=== PATIENT | male | born 1970 | race African-American/Black ===

== ENCOUNTER 2020-11-18 15:20 | Inpatient (IN) | payer OTHER ==
[2020-11-18] MEDS ORDERED: SODIUM CHLORIDE 0.9% 1,000 ML IV STA (16:53)
--- NOTE | 2020-11-18 16:58 | ED ---
General Adult HPI - General Chief complaint: Extremity Problem,Nontraumatic Stated complaint: Leg pain Time Seen by Provider: 11/18/20 15:25 Source: patient, RN notes reviewed, old records reviewed Mode of arrival: ambulatory Limitations: no limitations - History of Present Illness Initial comments: This is a 50-year-old male who presents emergency Department complaining that his right leg is extremely weak. Patient states he cannot walk on it because it so weak. Patient states a year ago he had coded in January he had the welsh syndrome he was given IgG and his symptoms improved. Patient states in June again he had weakness bilaterally he was given IgG again and his symptoms improved. Patient states since then he'll have weakness occasionally is both legs and other occasions one leg. Patient states since then every time he gets it just goes away after some fluids and an overnight stay in the hospital. Patient is in rehab for cocaine abuse is been there for 9 days. - Related Data Home Medications Medication Instructions Recorded Confirmed Amitriptyline HCl [Elavil] 50 mg PO BID 11/18/20 11/18/20 Atorvastatin Calcium [Lipitor] 40 mg PO HS 11/18/20 11/18/20 Carvedilol [Coreg] 12.5 mg PO BID 11/18/20 11/18/20 HYDROcodone/APAP 5-325MG [[place] 1 tab PO BID PRN 11/18/20 11/18/20 5-325] Insulin Glargine [Lantus] 60 unit SQ BID 11/18/20 11/18/20 Insulin Lispro [humaLOG] See Protocol SQ ACHS 11/18/20 11/18/20 Loratadine 10 mg PO DAILY 11/18/20 11/18/20 Losartan Potassium [Cozaar] 100 mg PO DAILY 11/18/20 11/18/20 Omeprazole 20 mg PO DAILY 11/18/20 11/18/20 Pregabalin [Lyrica] 200 mg PO BID 11/18/20 11/18/20 Promethazine 6.25MG/5Ml [Phenergan 6.25 mg PO Q6H PRN 11/18/20 11/18/20 Syrup] glipiZIDE [Glucotrol] 5 mg PO AC-SUPPER 11/18/20 11/18/20 glipiZIDE [Glucotrol] 10 mg PO AC-BRKFST 11/18/20 11/18/20 Allergies Allergy/AdvReac Type Severity Reaction Status Date / Time amoxicillin Allergy Anaphylaxis Verified 11/18/20 19:07 ibuprofen [From Motrin] Allergy Anaphylaxis Verified 11/18/20 19:07 lisinopril Allergy Anaphylaxis Verified 11/18/20 19:07 tramadol Allergy Anaphylaxis Verified 11/18/20 19:07 Review of Systems ROS Statement: Those systems with pertinent positive or pertinent negative responses have been documented in the HPI. ROS Other: All systems not noted in ROS Statement are negative. Past Medical History Past Medical History: Diabetes Mellitus, Hypertension Additional Past Medical History / Comment(s): GB History of Any Multi-Drug Resistant Organisms: None Reported Past Surgical History: Tonsillectomy Past Psychological History: No Psychological Hx Reported Smoking Status: Never smoker Past Alcohol Use History: Occasional Past Drug Use History: None Reported General Exam - General Exam Comments Initial Comments: GENERAL: Patient is well-developed and well-nourished. Patient is nontoxic and well- hydrated and is in no acute distress. ENT: Neck is soft and supple. No significant lymphadenopathy is noted. Oropharynx is clear. Moist mucous membranes. Neck has full range of motion without eliciting any pain. EYES: The sclera were anicteric and conjunctiva were pink and moist. Extraocular movements were intact and pupils were equal round and reactive to light. Eyelids were unremarkable. PULMONARY: Unlabored respirations. Good breath sounds bilaterally. No audible rales rhonchi or wheezing was noted. CARDIOVASCULAR: There is a regular rate and rhythm without any murmurs gallops or rubs. ABDOMEN: Soft and nontender with normal bowel sounds. No palpable organomegaly was noted. There is no palpable pulsatile mass. SKIN: Skin is clear with no lesions or rashes and otherwise unremarkable. NEUROLOGIC: Patient is alert and oriented x3. Cranial nerves II through XII are grossly intact. Patient should strength at the knee and ankle are 1 out of 5. MUSCULOSKELETAL: Normal extremities with adequate strength and full range of motion. 1+ edema bilaterally LYMPHATICS: No significant lymphadenopathy is noted PSYCHIATRIC: Normal psychiatric evaluation. Limitations: no limitations Course Vital Signs 11/18/20 15:21 Temperature 99 F Pulse Rate 88 Respiratory 20 Rate Blood Pressure 134/85 O2 Sat by Pulse 99 Oximetry Medical Decision Making - Medical Decision Making EKG shows normal sinus rhythm 80 bpm ME interval is 134 QRS is 90 QT interval 362 QTC is 4:30. Patient's EKG shows no ST segment elevation or depression. I will back to reevaluate the patient he was starting to get some movement in the right leg and he states this is what happens multiple times in the past when his leg doesn't move it up slowly comes back and then he is fine. CT of the brain shows no acute abnormality. I spoke with Dr. hunter he wanted the patient admitted he wanted neurology to evaluate the patient. - Lab Data Result diagrams: 11/18/20 17:14 11/18/20 17:14 Lab Results 11/18/20 11/18/20 11/18/20 Range/Units 17:14 17:14 17:14 WBC 6.1 (3.8-10.6) k/uL RBC 3.77 L (4.30-5.90) m/uL Hgb 11.6 L (13.0-17.5) gm/dL Hct 34.3 L (39.0-53.0) % MCV 91.1 (80.0-100.0) fL MCH 30.9 (25.0-35.0) pg MCHC 33.9 (31.0-37.0) g/dL RDW 13.4 (11.5-15.5) % Plt Count 344 (150-450) k/uL MPV 6.8 Neutrophils % 50 % Lymphocytes % 37 % Monocytes % 8 % Eosinophils % 3 % Basophils % 1 % Neutrophils # 3.1 (1.3-7.7) k/uL Lymphocytes # 2.3 (1.0-4.8) k/uL Monocytes # 0.5 (0-1.0) k/uL Eosinophils # 0.2 (0-0.7) k/uL Basophils # 0.0 (0-0.2) k/uL PT 9.7 (9.0-12.0) sec INR 0.9 (<1.2) Sodium 138 (137-145) mmol/L Potassium 4.0 (3.5-5.1) mmol/L Chloride 103 (98-107) mmol/L Carbon Dioxide 29 (22-30) mmol/L Anion Gap 6 mmol/L BUN 9 (9-20) mg/dL Creatinine 0.62 L (0.66-1.25) mg/dL Est GFR (CKD-EPI)AfAm >90 (>60 ml/min/1.73 sqM) Est GFR (CKD-EPI)NonAf >90 (>60 ml/min/1.73 sqM) Glucose 187 H (74-99) mg/dL Calcium 9.2 (8.4-10.2) mg/dL Magnesium 1.7 (1.6-2.3) mg/dL Total Bilirubin 0.2 (0.2-1.3) mg/dL AST 26 (17-59) U/L ALT 24 (4-49) U/L Alkaline Phosphatase 80 (38-126) U/L Troponin I (0.000-0.034) ng/mL Total Protein 6.8 (6.3-8.2) g/dL Albumin 3.9 (3.5-5.0) g/dL 11/18/20 Range/Units 17:14 WBC (3.8-10.6) k/uL RBC (4.30-5.90) m/uL Hgb (13.0-17.5) gm/dL Hct (39.0-53.0) % MCV (80.0-100.0) fL MCH (25.0-35.0) pg MCHC (31.0-37.0) g/dL RDW (11.5-15.5) % Plt Count (150-450) k/uL MPV Neutrophils % % Lymphocytes % % Monocytes % % Eosinophils % % Basophils % % Neutrophils # (1.3-7.7) k/uL Lymphocytes # (1.0-4.8) k/uL Monocytes # (0-1.0) k/uL Eosinophils # (0-0.7) k/uL Basophils # (0-0.2) k/uL PT (9.0-12.0) sec INR (<1.2) Sodium (137-145) mmol/L Potassium (3.5-5.1) mmol/L Chloride (98-107) mmol/L Carbon Dioxide (22-30) mmol/L Anion Gap mmol/L BUN (9-20) mg/dL Creatinine (0.66-1.25) mg/dL Est GFR (CKD-EPI)AfAm (>60 ml/min/1.73 sqM) Est GFR (CKD-EPI)NonAf (>60 ml/min/1.73 sqM) Glucose (74-99) mg/dL Calcium (8.4-10.2) mg/dL Magnesium (1.6-2.3) mg/dL Total Bilirubin (0.2-1.3) mg/dL AST (17-59) U/L ALT (4-49) U/L Alkaline Phosphatase (38-126) U/L Troponin I <0.012 (0.000-0.034) ng/mL Total Protein (6.3-8.2) g/dL Albumin (3.5-5.0) g/dL Disposition Clinical Impression: Weakness of right leg Disposition: ADMITTED IP TO THIS HOSP Referrals: Nonstaff,Physician [Primary Care Provider] - 1-2 days Time of Disposition: 20:51
[2020-11-18 17:29] LABS: Basophils % (A) 1 %; Eosinophils # (A) 0.2 k/uL (0-0.7); Eosinophils % (A) 3 %; HCT 34.3 % (39.0-53.0); HGB 11.6 gm/dL (13.0-17.5); Lymphocytes # (A) 2.3 k/uL (1.0-4.8); Lymphocytes % (A) 37 %; MCH 30.9 pg (25.0-35.0); MCHC 33.9 g/dL (31.0-37.0); MCV 91.1 fL (80.0-100.0); Mean Platelet Volume 6.8; Monocytes # (A) 0.5 k/uL (0-1.0); Monocytes % (A) 8 %; Neutrophils # (A) 3.1 k/uL (1.3-7.7); Neutrophils % (A) 50 %; Platelet Count 344 k/uL (150-450); RBC 3.77 m/uL (4.30-5.90); RDW 13.4 % (11.5-15.5); WBC 6.1 k/uL (3.8-10.6)
--- NOTE | 2020-11-18 17:30 | XR ---
EXAMINATION TYPE: XR chest 2V DATE OF EXAM: 11/18/2020 COMPARISON: NONE HISTORY: Leg pain TECHNIQUE: 2 views FINDINGS: Heart and mediastinum are normal. Lungs are clear of infiltrate. There are no hilar masses. Bony thorax is intact. Pulmonary vascularity is normal. This possible 1 cm nodule in the left midlun g field. IMPRESSION: Normal heart. Possible left side pulmonary nodule.
[2020-11-18 17:37] LABS: INR 0.9 (<1.2); Prothrombin Time 9.7 sec (9.0-12.0)
[2020-11-18 17:38] LABS: ALT 24 U/L (4-49); AST 26 U/L (17-59); African American GFR (CKD) >90 (>60 ml/min/1.73 sqM); Albumin 3.9 g/dL (3.5-5.0); Alkaline Phosphatase 80 U/L (38-126); Anion Gap 6 mmol/L; Blood Urea Nitrogen 9 mg/dL (9-20); Calcium 9.2 mg/dL (8.4-10.2); Carbon Dioxide 29 mmol/L (22-30); Chloride 103 mmol/L (98-107); Glucose 187 mg/dL (74-99); Magnesium 1.7 mg/dL (1.6-2.3); Non-African American GFR(CKD) >90 (>60 ml/min/1.73 sqM); Sodium 138 mmol/L (137-145); Total Bilirubin 0.2 mg/dL (0.2-1.3); Total Protein 6.8 g/dL (6.3-8.2)
[2020-11-18] MEDS ORDERED: SODIUM CHLORIDE 0.9% 1,000 ML IV ONE (20:51)
--- NOTE | 2020-11-18 21:02 | CT ---
EXAMINATION TYPE: CT brain wo con DATE OF EXAM: 11/18/2020 COMPARISON: None HISTORY: Right leg pain and weakness. CT DLP: 1114.4 mGycm Automated exposure control for dose reduction was used. Images were obtained of the brain without contrast. Ventricles and sulci appear normal. There is no mass effect nor midline shift. There is no sign of in tracranial hemorrhage. The calvarium is intact. IMPRESSION: Negative unenhanced head CT scan.
[2020-11-18 21:08] LABS: Amphetamine Screen,Urine Not Detected (NotDetected); Barbiturate Screen,Urine Not Detected (NotDetected); Benzodiazepines Screen,Urine Not Detected (NotDetected); Cocaine Screen,Urine Not Detected (NotDetected); Methadone Screen, Urine Not Detected (NotDetected); Opiate Screen,Urine Not Detected (NotDetected); Oxycodone Screen, Urine Not Detected (NotDetected); Phencyclidine Screen,Urine Not Detected (NotDetected); Tricyclic Antidepressant,Urine Detected (NotDetected); Urn Cannabinoid Scrn Not Detected (NotDetected)
[2020-11-18] MEDS ORDERED: ASPIRIN 325 MG TAB PO STA (21:08)
[2020-11-18 22:49] LABS: Glucose,Whole Blood 166 mg/dL (75-99)
[2020-11-19 07:09] LABS: Glucose,Whole Blood 87 mg/dL (75-99)
[2020-11-19] MEDS: INSULIN ASPART (NovoLOG) 100 UNIT/ML VIAL SQ SCH ×4 (08:09→20:39)
[2020-11-19] MEDS: carvediloL 12.5 MG TAB PO SCH ×2 (08:55→20:35)
[2020-11-19] MEDS: glipiZIDE 10 MG TAB PO SCH (08:55)
[2020-11-19] MEDS: AMITRIPTYLINE HCL 50 MG TAB PO SCH ×2 (08:55→20:35)
[2020-11-19] MEDS: INSULIN DETEMIR (LEVEMIR) 100 UNIT/ML SYR SQ SCH ×2 (08:55→21:46)
[2020-11-19] MEDS ORDERED: FAMOTIDINE 20 MG/2 ML VIAL IV SCH (09:00)
[2020-11-19] MEDS ORDERED: ASPIRIN 325 MG TAB PO SCH (09:00)
[2020-11-19] MEDS: LOSARTAN 50 MG TAB PO SCH (09:01)
[2020-11-19] MEDS: HEPARIN SODIUM,PORCINE/PF 5,000 UNIT/0.5 ML SYRINGE SQ SCH ×2 (09:01→20:34)
--- NOTE | 2020-11-19 09:44 | P.CNNES ---
History of Present Illness Consult date: 11/19/20 Requesting physician: John Major Reason for Consult: right leg weakness with history of GBS History of Present Illness: This is a 50-year-old gentleman with medical history of diabetes mellitus (for past 37 years), hypertension (for past 10-15 years), Mfrcdljfi-Uazqg-fpcviqje (GBS), peripheral neuropathy, cocaine use who presented emergency department on 11/18/2020 for right leg weakness. Patient stated that yesterday around 2 PM while in rehab for cocaine use he was sitting down in which she said that for an hour and then the upon trying to get up he noticed that his entire right leg was weak. He denies any new numbness, and denies any visual disturbance, any difficulty getting his words out swallowing, he denies any upper extremity weakness. He denies of any neck pain or lower back pain. He denies any trauma to the neck lower back or lower extremity. He denies any bladder or bowel incontinence. He stated that he uses cocaine and the last time he used it was the and the mid of October 2020. He is currently in rehab therapy for 9 days as stated above. He states that that he snorts and the smokes cocaine. He denies any alcohol use. He stated that he had similar episodes in the past of lower c hemistry weakness either he had right lower extremity weakness or bilateral lower extremity weakness initially started in January 2020 and he had lower bilateral lower extremity weakness and he was a notified he had GBS and was started on IVIG. Then he had another episode of right leg weakness then eventually involving both legs and that was engendered 2020 and then in July 2020 he had bilateral lower extremity weakness and he had extensive testing in which she had MRI of the brain and imaging of his spine and he had a lumbar puncture was told he has GBS then was given IVIG then his strength improved. He had a recurrent episode in October and we had some weakness lower extremity. He had the most of the workup at [facility]. He did follow up with a neurologist and not as an outpatient and he said he was prescribed Elavil to help with her neuropathy but his GBS was not addressed. As well as at [facility] (over at [place]) one of the neurologist notified him that he needs a sleep study since the was felt possibly he had a sleep disorder as a cause of his weakness and needed to follow-up with [facility] but he has not followed up at [facility]. Patient has been using a cane for at least 10 years because of his peripheral neuropathy. Patient denies any alcohol use or any tobacco use. Of note patient stated that he possibly had a stroke about the 10 years ago but does not recall the symptoms or location of the stroke he had it and he said that that his symptoms resolved. Patient stated that he is on aspirin 81 mg daily. Patient other home medication is Elavil 50 mg 1 tablet twice a day, Lyrica 20 mg tablet twice a day, losartan, insulin, [place] 1 tablet twice a day when necessary, glipizide, Coreg, Lipitor 40 mg daily at bedtime. Some other workup in the hospital consisted of: Initial vital signs: Blood pressure of 134/85, heart rate of 88, respiratory of 20, temperature of 99 Fahrenheit oral, respiratory rate of 20, pulse ox of 99% room air. CT of the head is reported as negative unenhanced head CT scan. EKG is reported as normal sinus rhythm. Left axis deviation. Abnormal EKG. Initial white blood cells 6.1, platelet is 3 44,000 which is normal. Initial hemoglobin is 11.6 with a slightly low. Chemistry panel is unremarkable. The glucose is slightly elevated to 187 the otherwise unremarkable. Toxicology screen is positive for tricyclic antidepressant. Review of Systems Review of system: The 12 point system was reviewed and apparent positive and negative per HPI. Past Medical History Past Medical History: Diabetes Mellitus, Hypertension Additional Past Medical History / Comment(s): GB History of Any Multi-Drug Resistant Organisms: None Reported Past Surgical History: Tonsillectomy Past Psychological History: No Psychological Hx Reported Smoking Status: Never smoker Past Alcohol Use History: Occasional Past Drug Use History: None Reported Medications and Allergies Home Medications Medication Instructions Recorded Confirmed Type Amitriptyline HCl [Elavil] 50 mg PO BID 11/18/20 11/18/20 History Atorvastatin Calcium [Lipitor] 40 mg PO HS 11/18/20 11/18/20 History Carvedilol [Coreg] 12.5 mg PO BID 11/18/20 11/18/20 History HYDROcodone/APAP 5-325MG [[place] 1 tab PO BID PRN 11/18/20 11/18/20 History 5-325] Insulin Glargine [Lantus] 60 unit SQ BID 11/18/20 11/18/20 History Insulin Lispro [humaLOG] See Protocol SQ ACHS 11/18/20 11/18/20 History Loratadine 10 mg PO DAILY 11/18/20 11/18/20 History Losartan Potassium [Cozaar] 100 mg PO DAILY 11/18/20 11/18/20 History Omeprazole 20 mg PO DAILY 11/18/20 11/18/20 History Pregabalin [Lyrica] 200 mg PO BID 11/18/20 11/18/20 History Promethazine 6.25MG/5Ml [Phenergan 6.25 mg PO Q6H PRN 11/18/20 11/18/20 History Syrup] glipiZIDE [Glucotrol] 5 mg PO AC-SUPPER 11/18/20 11/18/20 History glipiZIDE [Glucotrol] 10 mg PO AC-BRKFST 11/18/20 11/18/20 History Allergies Allergy/AdvReac Type Severity Reaction Status Date / Time amoxicillin Allergy Anaphylaxis Verified 11/18/20 19:07 ibuprofen [From Motrin] Allergy Anaphylaxis Verified 11/18/20 19:07 lisinopril Allergy Anaphylaxis Verified 11/18/20 19:07 tramadol Allergy Anaphylaxis Verified 11/18/20 19:07 Physical Examination - Vital Signs Vital Signs: Vital Signs Temp Pulse Resp BP Pulse Ox 11/19/20 04:54 98.3 F 86 18 145/89 99 11/18/20 22:50 88 20 136/88 98 11/18/20 21:00 90 20 128/81 99 11/18/20 20:30 98.8 F 86 20 133/85 99 11/18/20 15:21 99 F 88 20 134/85 99 Intake and Output 11/18/20 11/19/20 11/19/20 22:59 06:59 14:59 Other: Weight 124.738 kg GENERAL: The patient is lying in bed and is not in acute distress. CHEST: The heart rate is regular rate rhythm. No murmurs to auscultation. No carotid bruit bilaterally. LUNG: Clear to auscultation bilaterally no wheezing noted throughout. Not labored breathing. ABDOMEN/GI: Bowel sounds present in all 4 quadrants. No tenderness to palpation throughout. NEUROLOGICAL: Higher mental function: The patient is awake, alert, oriented to self, place and time. Patient is following commands. No aphasia and no neglect. Cranial nerves: The pupils are round, equal and reactive to light and accommodation. Visual pearce are full to confrontation throughout. Extraocular movement is intact no nystagmus is noted. Facial sensation is normal to touch throughout. The facial strength is normal throughout. Hearing is normal bilaterally to hand rub. Tongue is midline and moved [id number] without any difficulty. No dysarthria is noted. Shoulder shrug is normal bilaterally. Motor: Gait is deferred. The strength is right lower extremity is 1-2/5. Otherwise 5 over 5 throughout. Normal tone and bulk. Cerebellum: Normal finger to nose bilaterally. Sensation: Sensation is decreased to touch from knees bilaterally (old). Otherwise normal to touch throughout. Reflexes (right/left): 0 throughout bilaterally. Left biceps is 1+, otherwise 2+ throughout upper. Plantars are downgoing bilaterally. Results Coagulation study: PT of 9.7 and INR 0.9. Pérez virus PCR was not detected. - Laboratory Findings CBC and BMP: 11/18/20 17:14 11/18/20 17:14 Abnormal Lab Findings: Abnormal Labs 11/18/20 11/18/20 11/18/20 17:14 17:14 20:33 RBC 3.77 L Hgb 11.6 L Hct 34.3 L Creatinine 0.62 L Glucose 187 H POC Glucose (mg/dL) U Tricyclic Antidepress Detected H 11/18/20 22:45 RBC Hgb Hct Creatinine Glucose POC Glucose (mg/dL) 166 H U Tricyclic Antidepress Assessment and Plan Assessment: Acute right leg weakness. One of the possibility is rule out stroke (especially with multiple risk factors) vs GBS (especially with similar presentation in the past and was notified he had GBS as cause at outside facility). History of Ydroshboy-Bnosk-tquxgtea (GBS) with leg weakness History of stroke about 10 years ago (but does not recall details and without residual weakness) Diabetes mellitus Peripheral neuropathy Hypertension Cocaine use Plan: * CT of the head is reported as negative unenhanced head CT scan. * In the ED the patient was given aspirin 325 once then was started on aspirin 325 daily. I will decrease ASA 81mg daily (home dose). Primary team's placed patient on 40 mg of Lipitor daily at bedtime daily. * I ordered MRI of the brain to rule out any underlying stroke. I also ordered MRI Lumbar spine w/ and w/o. If patient does have stroke seen on MRI then will get rest of stroke work-up. * If MRI Is negative for stroke he does not want to pursue with lumbar puncture but will start him on IVIG 2g/kg over 3-5 days. * Consulted physical therapy and occupation therapy. * Ordered every 4 hours neuro checks and continuous cardiac monitoring. * Primary team ordered vitamin B12, TSH, folate, hemoglobin A1c and are pending. * We'll defer the rest of the medical management to primary team. * Patient was notified to follow-up with a neurologist as outpatient within 1-2 weeks upon discharge. He was notified to pursue with sleep study as notified in the past at [facility]. * The patient was counseled on cocaine use. Thank you for the consultation. Elbert Calloway MD Neuro-Hospitalist Time with Patient: Greater than 30
--- NOTE | 2020-11-19 11:27 | US ---
EXAMINATION TYPE: US carotid duplex BILAT DATE OF EXAM: 11/19/2020 COMPARISON: NONE CLINICAL HISTORY: stroke. right leg gives out, no h/o stroke EXAM MEASUREMENTS: RIGHT: Peak Systolic Velocity (PSV) cm/sec ----- Right CCA: 69.3 ----- Right ICA: 82.3 ----- Right ECA: 86.0 ICA/CCA ratio: 1.2 RIGHT: End Diastole cm/sec ----- Right CCA: 15.9 ----- Right ICA: 24.7 ----- Right ECA: 11.9 LEFT: Peak Systolic Velocity (PSV) cm/sec ----- Left CCA: 96.0 ----- Left ICA: 82.6 ----- Left ECA: 70.9 ICA/CCA ratio: 0.9 LEFT: End Diastole cm/sec ----- Left CCA: 25.6 ----- Left ICA: 37.2 ----- Left ECA: 20.3 VERTEBRALS (direction of flow): Right Vertebral: Antegrade Left Vertebral: Antegrade Rhythm: Normal Soft plaque noted at mid/dist left CCA, no significant stenosis seen Grayscale images show no significant focal plaque at carotid bulb level bilaterally. IMPRESSION: No hemodynamically significant stenosis seen in either internal carotid artery. Criteria for Assigning % of Stenosis / Diameter reduction (Estimation based on the indirect measurements of the internal carotid artery velocities (ICA PSV). 1. Normal (no stenosis)=ICA PSV < 125 cm/s: ratio < 2.0: ICA EDV<40 cm/s. 2. Less than 50% stenosis=ICA PSV < 125 cm/s: ratio < 2.0: ICA EDV<40 cm/s. 3. 50 to 69% stenosis=ICA PSV of 125 to 230 cm/s: ration 2.0 ? 4.0: ICA EDV 40-100 cm/s. 4. Greater than 70% stenosis to near occlusion= ICA PSV > 230 cm/s: ratio > 4.0: ICA EDV > 100 cm/s. 5. Near occlusion= ICA PSV velocities may be low or undetectable: variable ratio and ICA EDV. 6. Total occlusion=unable to detect flow.
[2020-11-19 12:21] LABS: Glucose,Whole Blood 112 mg/dL (75-99)
[2020-11-19] MEDS: PREGABALIN 100 MG CAP PO SCH ×2 (13:59→20:38)
[2020-11-19] MEDS ORDERED: TEMAZEPAM 15 MG CAP PO PRN (14:21)
[2020-11-19] MEDS ORDERED: LORazepam 0.5 MG TAB PO PRN (14:21)
--- NOTE | 2020-11-19 14:38 | MR ---
EXAMINATION TYPE: MR brain wo/w con DATE OF EXAM: 11/19/2020 COMPARISON: CT brain from yesterday. HISTORY: Right leg weakness; , suspected stroke on admission one day earlier. TECHNIQUE: Multiplanar, multisequence images of the brain and brainstem is performed without and with IV contras t, utilizing 13 mL intravenous Gadavist . FINDINGS: Diffusion weighted images demonstrate no evidence of a recent infarct or other diffusion ab normality. The ventricular system and cisternal spaces are normal in size and appearance. The brain volume is age appropriate. There is occasional focus of T2 hyperintensity scattered throughout the wh ite matter bilaterally. Less than 6 scattered lesions are present. Midline structures demonstrate normal morphology. The craniocervical junction appears within normal limits. Post contrast images demonstrate no abnormal enhancement. The dural venous sinuses appear pa tent. The visualized sinuses are clear and the globes are intact. Increased fluid signal bilateral ma stoid air cells extending towards petrous apex is present. IMPRESSION: No MRI evidence for a recent infarct. Possible bilateral mastoiditis, correlate clinicall y.
--- NOTE | 2020-11-19 15:00 | CT ---
EXAMINATION TYPE: CT lumbar spine wo con DATE OF EXAM: 11/19/2020 2:43 PM COMPARISON: None. HISTORY: Right leg weakness. CT DLP: 2213.3 mGycm Automated exposure control for dose reduction was used. Unenhanced CT of the lumbar spine was performed. Bone and soft tissue window settings are submitted as well as coronal and sagittal reconstructions. There are 5 lumbar-type vertebra. Lumbar spine shows satisfactory alignment without evidence of acute fracture or dislocation. Vertebral body heights and disc space heights are maintained. Spinal canal grossly preserved. Review of axial images shows T12-L1, L1-L2, and L2-L3 levels all appear within normal limits. Axial images at L3-L4 level shows mild facet degenerative changes bilaterally. Axial images at L4-L5 level show moderate to severe facet degenerative changes bilaterally. There is central disc protrusion mildly effacing the anterior thecal sac on axial image 65. Patent bilateral n eural foramina. Axial images at L5-S1 level show mild facet degenerative changes bilaterally. Spinal canal is preserv ed. Patent bilateral neural foramina. Paraspinal muscle bulk is maintained. Some contrast excretion from recent MRI brain study noted in th e ureters and collecting systems. IMPRESSION: Degenerative changes greatest L4-L5 level as detailed above
--- NOTE | 2020-11-19 15:08 | HP ---
HISTORY AND PHYSICAL CHIEF COMPLAINTS: Some pain and weakness of the right leg. HISTORY OF PRESENT ILLNESS: This 50-year-old gentleman with a past medical history of multiple medical problems including CVA, TIA, history of diabetes, history of GERD, hypertension, history of , Guillain Lowell syndrome, history of CVA about 15 years ago, being followed by primary physician in [facility]. Is at rehab in [facility]. The patient apparently had a COVID-19 and was admitted and subsequently patient had a Guillain Lowell IgG treatments in 2019, about twice with success. The patient also complains of neuropathy also. Currently the patient is complaining of some pain and weakness of the right leg. Patient is unable to move the right leg. The patient is in [facility] for cocaine addiction. The patient admitted for further evaluation and treatment. There is no history of fever, rigors, chills. No headache, loss of consciousness, seizures at this time. PAST MEDICAL HISTORY: History of CVA, TIA, diabetes, GERD, hyperlipidemia hypertension, history of DJD, history of renal disease, history of Guillain Lowell syndrome. MEDICATIONS: Home medications prior to admission include Elavil, promethazine, Lyrica, omeprazole, Cozaar, loratadine, Lantus, Humalog, [place], Glucotrol, Coreg, Lipitor. ALLERGIES: AMOXICILLIN, MOTRIN, LISINOPRIL, ULTRAM. FAMILY HISTORY: History of asbestosis, lung cancer in the father. SOCIAL HISTORY: History of occasional alcohol. History of cocaine. REVIEW OF SYSTEMS: ENT: No diminished vision or hearing. CARDIOVASCULAR: No angina or palpitations. RESPIRATORY: No cough. GI: As mentioned earlier. : No dysuria. NERVOUS SYSTEM: As mentioned earlier. ALLERGY/IMMUNOLOGY: No asthma or hayfever. MUSCULOSKELETAL: As mentioned earlier. HEMATOLOGY: No history of anemia. ENDOCRINE: As mentioned earlier. CONSTITUTIONAL: As mentioned earlier. DERMATOLOGY: Negative. RHEUMATOLOGY: Negative. PSYCHIATRY: As mentioned earlier. PHYSICAL EXAM: GENERAL: Patient is alert, oriented x3. VITAL SIGNS: Pulse 86, blood pressure 145/80, respiration 18, temperature 98.2, pulse ox 99% on room air. HEENT: Conjunctivae normal. Oral mucosa moist. NECK: No jugular venous distention. No carotid bruits. No lymph node enlargement. RESPIRATORY: Breath sounds diminished at the bases. No rhonchi, no crackles. HEART: S1 and S2, muffled. ABDOMEN: Soft, no tenderness. No masses palpable. EXTREMITIES: Right leg with some pain and swelling, as well as significant weakness and some sensory abnormalities also noted. LABS: COVID-19 is negative. Glucose 166 and 112. WBC 6.2, hemoglobin 11.6, and the LFTs are normal. Drug screen is positive only for tricyclic antidepressants. ASSESSMENT: 1. Acute weakness of the right lower leg and gait dysfunction, possible acute stroke. 2. Rule out radiculopathy. 3. Right leg pain, rule out DVT. 4. History of Guillain Lowell syndrome. 5. Previous history of COVID-19. 6. History of stroke on the right side. 7. History of cerebrovascular accident, transient ischemic attack. 8. Diabetes mellitus type 2. 9. History of GERD. 10.Hypertension. 11.Hyperlipidemia. 12.History of degenerative joint disease. 13.History of peripheral neuropathy secondary to diabetes mellitus type 2. 14.History of cocaine. 15.Obesity with body mass of 31.8. RECOMMENDATION AND DISCUSSION: In this 50-year-old gentleman who presented with multiple complex medical issues, we will monitor the patient closely. Continue the current management and continue symptomatic treatment. Resume the home medications. I will follow the patient closely with Neurology and an MRI of the brain and CT of the lumbar spine. Ultrasound was ordered and ultrasound venous Doppler also will be ordered and will be done. Also recommend a 2D echo and carotid Doppler to complete the workup as well. Otherwise, closely monitor. See orders for details. Prognosis guarded because of multiple complex medical issues. Discussed with the patient who understands. Further recommendations to follow. MMODL / IJN: [id number] / MTDD
[2020-11-19] MEDS ORDERED: IMMUNE GLOBULIN (GAMMAGARD) 20 GM in EMPTY BAG 1 BAG IV ONE (16:00)
[2020-11-19] MEDS ORDERED: IMMUNE GLOBULIN (GAMMAGARD) 20 GM in EMPTY BAG 1 BAG IV NR (16:00)
--- NOTE | 2020-11-19 16:02 | US ---
EXAMINATION TYPE: US venous doppler duplex LE BI DATE OF EXAM: 11/19/2020 3:42 PM COMPARISON: NONE CLINICAL HISTORY: rule out DVT. right leg numbness, ankle swelling, no h/o dvt SIDE PERFORMED: Bilateral TECHNIQUE: The lower extremity deep venous system is examined utilizing real time linear array sonog mickey with graded compression, doppler sonography and color-flow sonography. VESSELS IMAGED: Common Femoral Vein Deep Femoral Vein Greater Saphenous Vein * Femoral Vein Popliteal Vein Small Saphenous Vein * Proximal Calf Veins (* superficial vessels) Patient too tall or bed and had to bend knees upright and couldn't stop shaking Right Leg: Negative for DVT Left Leg: Negative for DVT Grayscale, color doppler, spectral doppler imaging performed of the deep veins of the bilateral lower extremities. There is normal flow, compressibility, vascular waveforms. IMPRESSION: Suboptimal study without acute DVT identified in either lower extremity.
[2020-11-19 17:17] LABS: Appearance,Urine Clear (Clear); Bilirubin,Urine Negative (Negative); Blood,Urine Negative (Negative); Color,Urine Light Yellow; Glucose,Urine (UA) Negative (Negative); Ketones,Urine Negative (Negative); Leukocyte Esterase,Urine Negative (Negative); Nitrite,Urine Negative (Negative); PH, Urine 7.5 (5.0-8.0); Protein,Urine Negative (Negative); Specific Gravity,Urine 1.011 (1.001-1.035); Urobilinogen,Urine <2.0 mg/dL (<2.0)
[2020-11-19 17:27] LABS: C Reactive Protein 1.9 mg/dL (<1.0)
[2020-11-19] MEDS: glipiZIDE 5 MG TAB PO SCH (17:42)
[2020-11-19 18:02] LABS: Glucose,Whole Blood 242 mg/dL (75-99)
[2020-11-19 18:50] LABS: Folate, Serum 8.6 ng/mL
[2020-11-19 18:54] LABS: Hemoglobin A1C 7.4 % (4.0-6.0)
[2020-11-19] MEDS: ATORVASTATIN 40 MG TAB PO SCH (20:35)
[2020-11-19] MEDS: FAMOTIDINE 20 MG TAB PO SCH (20:35)
[2020-11-19 20:37] LABS: Glucose,Whole Blood 157 mg/dL (75-99)
[2020-11-19] MEDS: GABAPENTIN 400 MG CAP PO SCH (21:45)
[2020-11-20 08:13] LABS: Glucose,Whole Blood 141 mg/dL (75-99)
[2020-11-20] MEDS: ASPIRIN 81 MG PO SCH (08:43)
[2020-11-20] MEDS: PREGABALIN 100 MG CAP PO SCH ×2 (08:43→21:37)
[2020-11-20] MEDS: carvediloL 12.5 MG TAB PO SCH ×2 (08:43→21:37)
[2020-11-20] MEDS: PANTOPRAZOLE 40 MG TABLET PO SCH (08:43)
[2020-11-20] MEDS: GABAPENTIN 400 MG CAP PO SCH ×3 (08:43→21:37)
[2020-11-20] MEDS: INSULIN DETEMIR (LEVEMIR) 100 UNIT/ML SYR SQ SCH ×2 (08:44→21:39)
[2020-11-20] MEDS: FAMOTIDINE 20 MG TAB PO SCH (08:44)
[2020-11-20] MEDS: INSULIN ASPART (NovoLOG) 100 UNIT/ML VIAL SQ SCH ×4 (08:44→21:39)
[2020-11-20] MEDS: LOSARTAN 50 MG TAB PO SCH (08:44)
[2020-11-20] MEDS: AMITRIPTYLINE HCL 50 MG TAB PO SCH ×2 (08:45→21:37)
[2020-11-20] MEDS: glipiZIDE 10 MG TAB PO SCH (08:45)
[2020-11-20] MEDS: HEPARIN SODIUM,PORCINE/PF 5,000 UNIT/0.5 ML SYRINGE SQ SCH ×2 (08:45→21:38)
[2020-11-20 10:52] LABS: Glucose,Whole Blood 307 mg/dL (75-99)
[2020-11-20] MEDS ORDERED: CYANOCOBALAMIN 1,000 MCG/ML 1 ML VIAL IM ONE (13:15)
--- NOTE | 2020-11-20 13:51 | P.PN ---
Subjective Progress Note Date: 11/20/20 The patient was seen at bedside and he feels his right leg is better today compared to yesterday but not back to baseline. He received his first IVIG yesterday and pending to receive his second dose today. Objective - Vital Signs Vital signs: Vital Signs Temp 98.3 F 11/20/20 11:01 Pulse 87 11/20/20 11:01 Resp 20 11/20/20 11:01 BP 120/74 11/20/20 11:01 Pulse Ox 96 11/20/20 11:01 Intake & Output 11/19/20 11/20/20 11/20/20 18:59 06:59 18:59 Intake Total 86.625 720 Output Total 2600 400 Balance -2513.375 320 Weight 124.738 kg Intake: Intake, IV Titration 86.625 Amount Immune Globulin ( 86.625 Gammagard) 20 gm In Empty Bag 1 bag @ Titrate IV . Q0M ONE Rx#:[id number] Oral 720 Output: Urine 2600 400 Other: Voiding Method Urinal Urinal Urinal - Exam GENERAL: The patient is lying in bed and is not in acute distress. NEUROLOGICAL: Higher mental function: The patient is awake, alert, oriented to self, place and time. Patient is following commands. No aphasia and no neglect. Cranial nerves: The pupils are round, equal and reactive to light and accommodation. Visual pearce are full to confrontation throughout. Extraocular movement is intact no nystagmus is noted. Facial sensation is normal to touch throughout. The facial strength is normal throughout. Hearing is normal bilaterally to hand rub. Tongue is midline and moved [id number] without any difficulty. No dysarthria is noted. Shoulder shrug is normal bilaterally. Motor: Gait is deferred. The strength is right lower extremity is 3/5 able to lift above gravity (somewhat better today compared to yesterday). Otherwise 5 over 5 throughout. Normal tone and bulk. Cerebellum: Normal finger to nose bilaterally. Sensation: Sensation is decreased to touch from knees bilaterally (old). Otherwise normal to touch throughout. Reflexes (right/left): 0 throughout bilaterally. Left biceps is 1+, otherwise 2+ throughout upper. Plantars are downgoing bilaterally. - Labs CBC & Chem 7: 11/18/20 17:14 11/18/20 17:14 Labs: Abnormal Lab Results - Last 24 Hours (Table) 11/19/20 11/19/20 11/19/20 Range/Units 08:30 16:34 16:34 ESR 18 H (0-15) mm/hr POC Glucose (mg/dL) (75-99) mg/dL Hemoglobin A1c 7.4 H (4.0-6.0) % Lactate Dehydrogenase 619 H (313-618) U/L C-Reactive Protein 1.9 H (<1.0) mg/dL 11/19/20 11/19/20 11/20/20 Range/Units 17:55 20:25 08:11 ESR (0-15) mm/hr POC Glucose (mg/dL) 242 H 157 H 141 H (75-99) mg/dL Hemoglobin A1c (4.0-6.0) % Lactate Dehydrogenase (313-618) U/L C-Reactive Protein (<1.0) mg/dL 11/20/20 Range/Units 10:51 ESR (0-15) mm/hr POC Glucose (mg/dL) 307 H (75-99) mg/dL Hemoglobin A1c (4.0-6.0) % Lactate Dehydrogenase (313-618) U/L C-Reactive Protein (<1.0) mg/dL Assessment and Plan Assessment: Acute right leg weakness. Possibly due to GBS (especially with multiple similar presentation in the past and was notified he had GBS as cause at outside facility). History of Tjfrzlifw-Xhwcp-qjyulpoz (GBS) with leg weakness History of stroke about 10 years ago (but does not recall details and without residual weakness) Low Vitamin B12 (level of 267) Diabetes mellitus Peripheral neuropathy Hypertension Cocaine use Plan: * CT of the head is reported as negative unenhanced head CT scan. * MRI of the brain is reported as no MRI evidence for recent infarct. Possible bilateral mastoiditis, correlate clinically. * Patient could not get MRI of the lumbar since could not fit in it. Therefore CT lumbar spine was obtained as a result and it is reported as degenerative changes greatest L4-L5 level. And is seems more moderate over the L4-L5 the report. * Carotid duplex is reported as no hemodynamically significant stenosis seen in either internal carotid artery. * Seryn Folate is 8.6 which is considered normal. TSH is 0.81 which is considered normal. * Hemoglobin A1c is 7.4 which is elevated * Patient refused lumbar puncture as a result because of his previous diagnosis of GBS he was started on IVIG 2g/kg on 11/19/2020 for 5 days. Today is day 25. * Continue Aspirin 81mg daily (home dose) ad Lipitor 40mg daily at bedtime daily especially with history of stroke in past for secondary stroke prophylaxeis. * Consulted physical therapy and occupation therapy. * Ordered every 4 hours neuro checks and continuous cardiac monitoring. * Vitamin B12 is 267 which is low therefore I started the patient on vitamin B12 1000 g IM for the first day then after that by mouth. * Ordered rbc folate. * We'll try to obtain medical records from [facility] for his similar presentations. * We'll defer the rest of the medical management to primary team. * Patient was notified to follow-up with a neurologist as outpatient within 1-2 weeks upon discharge. He was notified to pursue with sleep study as notified in the past at [facility]. * The patient was counseled on cocaine use. The plan is discussed with the patient's nurse. Elbert Calloway MD Neuro-Hospitalist Time with Patient: Less than 30
--- NOTE | 2020-11-20 15:35 | PN ---
PROGRESS NOTE DATE OF SERVICE: 11/20/2020 This 50-year-old gentleman admitted with weakness of the right leg is being closely monitored at this time. Neurology has seen the patient. The basic evaluation was negative. Venous Doppler was negative and ultrasound. The patient had previous history of Guillain Grand Tower syndrome and received IVIG. The patient is started on IVIG and showing significant improvement in the weakness. PAST MEDICAL HISTORY: Reviewed. REVIEW OF SYSTEMS: CARDIOVASCULAR SYSTEM: No angina or palpitations. RESPIRATION: As mentioned earlier. GI as mentioned earlier. NERVOUS SYSTEM: As mentioned earlier. CURRENT MEDICATIONS: Reviewed and include: Elavil, aspirin. Lipitor, Coreg, vitamin B12, Pepcid, Neurontin, Glucotrol, IVIG. PHYSICAL EXAMINATION: Patient is alert and oriented times three. Pulse 87, blood pressure 120/74, respiration 20, temperature 98.3, pulse ox 98% on room air. HEENT: Conjunctivae normal. Oral mucosa moist. NECK: No jugular venous distention. No carotid bruit. No lymph node enlargement. CARDIOVASCULAR systems: S1, S2 muffled. RESPIRATION: Breath sounds diminished in the bases. A few scattered rhonchi. ABDOMEN: Soft, nontender. LEGS: The right leg is weak but slightly improved compared to yesterday. SKIN: No ulcer, rashes and no bleeding. JOINTS: No active deforming arthropathy. LABS: Accu-Cheks 157, 147, 307, hemoglobin 11.7, ESR is 18, C-reactive protein is 619, LDH is 619. Covid is negative. ASSESSMENT: 1. 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 2. Right leg pain and deep vein thrombosis ruled out. 3. 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 4. Previous history of COVID-19. 5. History of stroke on the right side. 6. History of cerebrovascular accident, transient ischemic attack. 7. Diabetes type 2. 8. History of gastroesophageal reflux disease. 9. Hypertension. 10.Hyperlipidemia. 11.History of degenerative joint disease. 12.History of peripheral neuropathy secondary to diabetes type 2. 13.History of cocaine. 14.Obesity with body mass index of 31.8. RECOMMENDATIONS AND DISCUSSION: Recommend to continue current medications, management and symptomatic treatment. Otherwise, at this time, continue with IV. The drug screen is positive only for tricyclics and antidepressants. Covid 19 is negative at this time. The patient has slight elevation of inflammatory markers. I would recommend Accu-Cheks a.c. and at bedtime and scale at this time. Otherwise, we will continue to monitor along with Neurology. PT/OT evaluation. Guarded prognosis. Further recommendations to follow. MMODL / IJN: [id number] /
[2020-11-20] MEDS ORDERED: IMMUNE GLOBULIN (GAMMAGARD) 20 GM in EMPTY BAG 1 BAG IV ONE (16:00)
[2020-11-20 16:57] LABS: Glucose,Whole Blood 236 mg/dL (75-99)
[2020-11-20] MEDS: glipiZIDE 5 MG TAB PO SCH (17:42)
[2020-11-20 20:51] LABS: Glucose,Whole Blood 186 mg/dL (75-99)
[2020-11-20] MEDS: ATORVASTATIN 40 MG TAB PO SCH (21:37)
[2020-11-21 07:19] LABS: Glucose,Whole Blood 164 mg/dL (75-99)
[2020-11-21] MEDS: AMITRIPTYLINE HCL 50 MG TAB PO SCH ×2 (07:53→21:11)
[2020-11-21] MEDS: glipiZIDE 10 MG TAB PO SCH (07:53)
[2020-11-21] MEDS: INSULIN DETEMIR (LEVEMIR) 100 UNIT/ML SYR SQ SCH ×2 (07:53→21:12)
[2020-11-21] MEDS: HEPARIN SODIUM,PORCINE/PF 5,000 UNIT/0.5 ML SYRINGE SQ SCH ×2 (07:53→21:10)
[2020-11-21] MEDS: PANTOPRAZOLE 40 MG TABLET PO SCH (07:54)
[2020-11-21] MEDS: INSULIN ASPART (NovoLOG) 100 UNIT/ML VIAL SQ SCH ×4 (07:54→21:20)
[2020-11-21] MEDS: PREGABALIN 100 MG CAP PO SCH ×2 (07:54→21:11)
[2020-11-21] MEDS: ASPIRIN 81 MG PO SCH (07:54)
[2020-11-21] MEDS: GABAPENTIN 400 MG CAP PO SCH ×3 (07:54→21:11)
[2020-11-21] MEDS: LOSARTAN 50 MG TAB PO SCH (07:55)
[2020-11-21] MEDS: carvediloL 12.5 MG TAB PO SCH ×2 (07:55→21:11)
[2020-11-21] MEDS: CYANOCOBALAMIN 1,000 MCG/ML 1 ML VIAL IM SCH (07:55)
[2020-11-21 11:41] LABS: Glucose,Whole Blood 202 mg/dL (75-99)
--- NOTE | 2020-11-21 14:12 | P.PN ---
Subjective Progress Note Date: 11/21/20 The patient is seen at bedside and he feels he is gaining more strength over the right lower extremity. Today is day 3 of IVIG. Objective - Vital Signs Vital signs: Vital Signs Temp 98.4 F 11/21/20 12:02 Pulse 53 L 11/21/20 12:02 Resp 20 11/21/20 12:02 BP 136/84 11/21/20 12:02 Pulse Ox 100 11/21/20 12:02 Intake & Output 11/20/20 11/21/20 11/21/20 18:59 06:59 18:59 Intake Total 140.449 960 380 Output Total 1000 Balance 140.449 960 -620 Intake: Intake, IV Titration 140.449 Amount Immune Globulin ( 3.533 Gammagard) 20 gm In Empty Bag 1 bag @ Titrate IV . Q0M ONE Rx#:[id number] Immune Globulin ( 136.916 Gammagard) 20 gm In Empty Bag 1 bag @ Titrate IV . Q0M ONE Rx#:[id number] Oral 960 380 Output: Urine 1000 Other: Voiding Method Urinal Urinal Toilet Urinal # Voids 2 1 # Bowel Movements 1 - Exam GENERAL: The patient is lying in bed and is not in acute distress. NEUROLOGICAL: Higher mental function: The patient is awake, alert, oriented to self, place and time. Patient is following commands. No aphasia and no neglect. Cranial nerves: The pupils are round, equal and reactive to light and accommodation. Visual pearce are full to confrontation throughout. Extraocular movement is intact no nystagmus is noted. Facial sensation is normal to touch throughout. The facial strength is normal throughout. Hearing is normal bila terally to hand rub. Tongue is midline and moved [id number]-lw-wssj without any difficulty. No dysarthria is noted. Shoulder shrug is normal bilaterally. Motor: Gait is deferred. The strength is right lower extremity is 3/5 able to lift above gravity (somewhat better today compared to yesterday). Otherwise 5 over 5 throughout. Normal tone and bulk. Cerebellum: Normal finger to nose bilaterally. Sensation: Sensation is decreased to touch from knees bilaterally (old). Otherwise normal to touch throughout. Reflexes (right/left): 0 throughout bilaterally. Left biceps is 1+, otherwise 2+ throughout upper. Plantars are downgoing bilaterally. - Labs CBC & Chem 7: 11/18/20 17:14 11/18/20 17:14 Labs: Abnormal Lab Results - Last 24 Hours (Table) 11/20/20 11/20/20 11/21/20 Range/Units 16:55 20:50 07:15 POC Glucose (mg/dL) 236 H 186 H 164 H (75-99) mg/dL 11/21/20 Range/Units 11:39 POC Glucose (mg/dL) 202 H (75-99) mg/dL Assessment and Plan Assessment: Acute right leg weakness. Possibly due to presumed AIDP (especially with multiple similar presentation in the past and was notified he had AIDP as cause at outside facility). 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 History of stroke about 10 years ago (but does not recall details and without residual weakness) Vitamin B12 deficiency (level of 267) Diabetes mellitus (HbA1c: 7.4)--uncontrolled history of HIV history of COVID-19 infection Peripheral polyneuropathy Hypertension Continous use of Cocaine use Anxiety/deprssion Plan: * CT of the head is reported as negative unenhanced head CT scan. * MRI of the brain is reported as no MRI evidence for recent infarct. Possible bilateral mastoiditis, correlate clinically. * Patient could not get MRI of the lumbar since could not fit in it. Therefore CT lumbar spine was obtained as a result and it is reported as degenerative changes greatest L4-L5 level. And is seems more moderate over the L4-L5 the report. * Carotid duplex is reported as no hemodynamically significant stenosis seen in either internal carotid artery. * Seryn Folate is 8.6 which is considered normal. TSH is 0.81 which is considered normal. * Hemoglobin A1c is 7.4 which is elevated * Rbc folate: 687 (normal). * Patient refused lumbar puncture as a result because of his previous diagnosis of GBS he was started on IVIG 2g/kg on 11/19/2020 for 5 days. Today is day 2/5. * Continue Aspirin 81mg daily (home dose) ad Lipitor 40mg daily at bedtime daily especially with history of stroke in past for secondary stroke prophylaxeis. * Consulted physical therapy and occupation therapy. * Ordered every 4 hours neuro checks and continuous cardiac monitoring. * Vitamin B12 is 267 which is low. Continue vitamin B12 1000 g daily by mouth. * We'll review medical records from [facility] for his similar presentations. * We'll defer the rest of the medical management to primary team. * Patient was notified to follow-up with a neurologist as outpatient within 1-2 weeks upon discharge. He was notified to pursue with sleep study as notified in the past at [facility]. * The patient was counseled on cocaine use. The plan is discussed with the patient's nurse. UPDATE: Outside records from [facility]: Patient was last admitted to [facility] for on and discharged on 10/29/2020 in which he was admitted for frequent falls and altered mental status. His discharge diagnoses is decreased loss of consciousness secondary due to possible cocaine use versus narcolepsy/paroxysmal hypnopompic morning paralysis--improved Cocaine abuse Nontraumatic rhabdomyolysis It is mentioned the patient has an HIV. His diabetes mellitus is uncontrolled with a hemoglobin A1c of 8.7 on 08/29/2020 He had a history of COVID-19 infection He has a peripheral polyneuropathy. He has a history of presumed AIDP in February 2020 status post IVIG. He had MRI of the thoracic spine 10/16/2020 which is reportedly reported as essentially unremarkable MRI thoracic spine without contrast. MRI lumbar 10/16/2020 it is reported as no acute fracture or malalignment. Mild spondylolysis at the lower lumbar levels. No significant central canal stenosis at. Mild bilateral neuroforaminal narrowing at L4-L5. Fluid within the L4-L5 facet bilaterally may suggest an element of flaccidity MR the head on 10/16/2020 is reported as no acute intracranial processes identified. No evidence of recent hemorrhage or infarct. No gross space- occupying lesion is appreciated. Minimal burden of scattered flare hyperintense lesion within the bihemispheric white matter is nonspecific but likely reflects chronic microvascular ischemic change. 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 SPEP was negative. Lyme disease negative. Patient also had an EEG as well previously at that hospital in the past and it was negative. Neurology felt CIDP the less likely given presentation has been episodic read then progressive and preserved patellar reflexes. No involvement in the upper extremities. Patient had CT abdomen and pelvis with small right adrenal adenoma. Neurology recommended outpatient referral to sleep study Center at [facility] for his paralysis/narcolepsy. Elbert Calloway MD Neuro-Hospitalist Time with Patient: Less than 30
--- NOTE | 2020-11-21 15:24 | PN ---
PROGRESS NOTE DATE OF SERVICE: 11/21/2020. This 50-year-old gentleman with leg weakness is being closely monitored. The patient also getting intravenous for possible Guillain Udell syndrome. No chest pain. No palpitations. No fever. The patient refused lumbar puncture. PHYSICAL EXAMINATION: Alert and oriented times three. Pulse is 53, blood pressure 130/84, respirations 20, temperature 98.2. Pulse ox 100 percent on room air. HEENT: Conjunctivae normal. NECK: No JVD. CARDIOVASCULAR: S1, S2 muffled. RESPIRATORY: Breath sounds diminished in the bases. A few scattered rhonchi and crackles. ABDOMEN: Soft. LEGS: Bilateral leg weakness, right more than the left. Accu-Cheks noted. ASSESSMENT: 1. Acute weakness of the right leg and gait dysfunction, possibly Guillain Udell syndrome, on IVIG per Neuro. 2. Right leg pain and deep vein thrombosis ruled out. 3. History of Guillain Udell syndrome. 4. Previous history of COVID-19. 5. History of stroke on the right. 6. History of cerebrovascular accident, transient ischemic attack. 7. Gait dysfunction. 8. Diabetes type 2. 9. History of gastroesophageal reflux disease. 10.Hypertension. 11.Hyperlipidemia. 12.History of degenerative joint disease. 13.History of peripheral neuropathy secondary to diabetes type 2. 14.History of cocaine. 15.Obesity with body mass index 31.8. RECOMMENDATIONS AND DISCUSSION: Recommend to continue current medications, management and symptomatic treatment. Continue with IV IG. Continue the rest of medications, symptomatic treatment. Prognosis guarded. Further recommendations to follow. MMODL / IJN: [id number] / [facility]ITAL[facility]hylic[facility]
[2020-11-21] MEDS ORDERED: IMMUNE GLOBULIN (GAMMAGARD) 20 GM in EMPTY BAG 1 BAG IV ONE (16:00)
[2020-11-21 16:54] LABS: Glucose,Whole Blood 255 mg/dL (75-99)
[2020-11-21] MEDS: glipiZIDE 5 MG TAB PO SCH (17:22)
[2020-11-21] MEDS ORDERED: LOPERAMIDE 2 MG CAP PO PRN (17:54)
[2020-11-21] MEDS: PROMETHAZINE HCL 6.25 MG/5 ML CUP PO PRN ×2 (17:56→22:58)
[2020-11-21 20:26] LABS: Glucose,Whole Blood 223 mg/dL (75-99)
[2020-11-21] MEDS: ATORVASTATIN 40 MG TAB PO SCH (21:11)
[2020-11-22 07:12] LABS: Glucose,Whole Blood 179 mg/dL (75-99)
[2020-11-22] MEDS: HEPARIN SODIUM,PORCINE/PF 5,000 UNIT/0.5 ML SYRINGE SQ SCH ×2 (08:05→21:02)
[2020-11-22] MEDS: INSULIN DETEMIR (LEVEMIR) 100 UNIT/ML SYR SQ SCH ×2 (08:06→21:02)
[2020-11-22] MEDS: INSULIN ASPART (NovoLOG) 100 UNIT/ML VIAL SQ SCH ×4 (08:06→21:02)
[2020-11-22] MEDS: LOSARTAN 50 MG TAB PO SCH (08:07)
[2020-11-22] MEDS: carvediloL 12.5 MG TAB PO SCH ×2 (08:07→21:02)
[2020-11-22] MEDS: glipiZIDE 10 MG TAB PO SCH (08:07)
[2020-11-22] MEDS: PANTOPRAZOLE 40 MG TABLET PO SCH (08:07)
[2020-11-22] MEDS: GABAPENTIN 400 MG CAP PO SCH ×3 (08:07→21:02)
[2020-11-22] MEDS: CYANOCOBALAMIN 1,000 MCG/ML 1 ML VIAL IM SCH (08:07)
[2020-11-22] MEDS: AMITRIPTYLINE HCL 50 MG TAB PO SCH ×2 (08:07→22:07)
[2020-11-22] MEDS: ASPIRIN 81 MG PO SCH (08:07)
[2020-11-22] MEDS: PREGABALIN 100 MG CAP PO SCH ×2 (08:08→21:01)
[2020-11-22] MEDS: PROMETHAZINE HCL 6.25 MG/5 ML CUP PO PRN ×3 (09:21→23:49)
[2020-11-22 11:55] LABS: Glucose,Whole Blood 203 mg/dL (75-99)
[2020-11-22] MEDS ORDERED: HYDROcodone/APAP 5-325MG 1 EACH TAB PO PRN (13:57)
[2020-11-22] MEDS ORDERED: PROMETHAZINE PO PRN (13:57)
--- NOTE | 2020-11-22 14:19 | P.PN ---
Subjective Progress Note Date: 11/22/20 Patient was seen at bedside and he stated that he is doing well today compared to his initial presentation. He stated that he is able to walk with a walker without any assistance was is drastically improved. Today's is day 4 out of 5 IVIG. He stated that he does have history of HIV but didn't notify anybody during this hospital stay and did not ask for his HIV medication to be restarted. I notified them that the in the future with these situations he needs that to notify the team for his HIV to be restarted for his own benefit. He said he has a history of HIV for the last 3 years. He uses a cane as a baseline for ambulation. Objective - Vital Signs Vital signs: Vital Signs Temp 98 F 11/22/20 11:33 Pulse 85 11/22/20 11:33 Resp 20 11/22/20 11:33 BP 149/79 11/22/20 11:33 Pulse Ox 98 11/22/20 11:33 Intake & Output 11/21/20 11/22/20 11/22/20 18:59 06:59 18:59 Intake Total 380 Output Total 1000 Balance -620 Intake: Oral 380 Output: Urine 1000 Other: Voiding Method Toilet Toilet Urinal Urinal # Voids 2 1 # Bowel Movements 2 - Exam GENERAL: The patient is lying in bed and is not in acute distress. NEUROLOGICAL: Higher mental function: The patient is awake, alert, oriented to self, place and time. Patient is following commands. No aphasia and no neglect. Cranial nerves: The pupils are round, equal and reactive to light and accommodation. Visual pearce are full to confrontation throughout. Extraocular movement is intact no nystagmus is noted. Facial sensation is normal to touch throughout. The facial strength is normal throughout. Hearing is normal bilaterally to hand rub. Tongue is midline and moved [id number] without any difficulty. No dysarthria is noted. Shoulder shrug is normal bilaterally. Motor: Gait is walking using a walker without any assistance, he is slow but s eems steady. The strength is right lower extremity is 4+/5 able to lift above gravity (better today compared to yesterday). Otherwise 5 over 5 throughout. Normal tone and bulk. Cerebellum: Normal finger to nose bilaterally. Sensation: Sensation is decreased to touch from knees bilaterally (old). Otherwise normal to touch throughout. Reflexes (right/left): Left biceps is 1+, patellar 1+ bilaterally, ankles are 0 bilaterally. otherwise 2+ throughout upper. Plantars are downgoing bilaterally. - Labs CBC & Chem 7: 11/18/20 17:14 11/18/20 17:14 Labs: Abnormal Lab Results - Last 24 Hours (Table) 11/21/20 11/21/20 11/22/20 Range/Units 16:52 20:24 07:09 POC Glucose (mg/dL) 255 H 223 H 179 H (75-99) mg/dL 11/22/20 Range/Units 11:53 POC Glucose (mg/dL) 203 H (75-99) mg/dL Assessment and Plan Assessment: Acute right leg weakness. Possibly due to presumed AIDP (especially with multiple similar presentation in the past and was notified he had AIDP as cause at outside facility). 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 History of stroke about 10 years ago (but does not recall details and without residual weakness) Vitamin B12 deficiency (level of 267) Diabetes mellitus (HbA1c: 7.4)--uncontrolled history of HIV history of COVID-19 infection Peripheral polyneuropathy Hypertension Continous use of Cocaine use Anxiety/deprssion Plan: * CT of the head is reported as negative unenhanced head CT scan. * MRI of the brain is reported as no MRI evidence for recent infarct. Possible bilateral mastoiditis, correlate clinically. * Patient could not get MRI of the lumbar since could not fit in it. Therefore CT lumbar spine was obtained as a result and it is reported as degenerative changes greatest L4-L5 level. And is seems more moderate over the L4-L5 the report. Outside records from [facility]: Patient was last admitted to [facility] for on and discharged on 10/29/2020 in which he was admitted for frequent falls and altered mental status. His discharge diagnoses is decreased loss of consciousness secondary due to possible cocaine use versus narcolepsy/paroxysmal hypnopompic morning paralysis--improved Cocaine abuse Nontraumatic rhabdomyolysis It is mentioned the patient has an HIV. His diabetes mellitus is uncontrolled with a hemoglobin A1c of 8.7 on 08/29/2020 He had a history of COVID-19 infection He has a peripheral polyneuropathy. He has a history of presumed AIDP in February 2020 status post IVIG. He had MRI of the thoracic spine 10/16/2020 which is reportedly reported as essentially unremarkable MRI thoracic spine without contrast. MRI lumbar 10/16/2020 it is reported as no acute fracture or malalignment. Mild spondylolysis at the lower lumbar levels. No significant central canal stenosis at. Mild bilateral neuroforaminal narrowing at L4-L5. Fluid within the L4-L5 facet bilaterally may suggest an element of flaccidity MR the head on 10/16/2020 is reported as no acute intracranial processes identified. No evidence of recent hemorrhage or infarct. No gross space- occupying lesion is appreciated. Minimal burden of scattered flare hyperintense lesion within the bihemispheric white matter is nonspecific but likely reflects chronic microvascular ischemic change. Seems that the patient had extensive workup with LP, EMG and imaging concern for Guilliane [place] Syndrome but overlap his chronic peripheral neuropathy area and on repeat EMG of 08/30/2020 patient with peripheral polyneuropathy of demyelinating type with secondary axonal loss and study was improved from prior EMG in 2019. SPEP was negative. Lyme disease negative. Patient also had an EEG as well previously at that hospital in the past and it was negative. Neurology felt CIDP the less likely given presentation has been episodic read then progressive and preserved patellar reflexes. No involvement in the upper extremities. Patient had CT abdomen and pelvis with small right adrenal adenoma. Neurology recommended outpatient referral to sleep study Center at [facility] for his paralysis/narcolepsy. Work-up in our facility: * Carotid duplex is reported as no hemodynamically significant stenosis seen in either internal carotid artery. * Seryn Folate is 8.6 which is considered normal. TSH is 0.81 which is considered normal. * Hemoglobin A1c is 7.4 which is elevated * Rbc folate: 687 (normal). * Patient refused lumbar puncture as a result because of his previous diagnosis of GBS he was started on IVIG 2g/kg on 11/19/2020 for 5 days. Today is day 4/5. * Continue Aspirin 81mg daily (home dose) ad Lipitor 40mg daily at bedtime daily especially with history of stroke in past for secondary stroke prophylaxeis. * Consulted physical therapy and occupation therapy. * Ordered every 4 hours neuro checks and continuous cardiac monitoring. * Vitamin B12 is 267 which is low. Continue vitamin B12 1000 g daily by mouth. * We'll defer the rest of the medical management to primary team. * His HIV medications needs to be restarted and will defer and this was notified to his nurse. Will defer management to his primary team. * Patient was notified to follow-up with a neurologist as outpatient within 1-2 weeks upon discharge. He was notified to pursue with sleep study as notified in the past at [facility]. * The patient was counseled on cocaine use. * Will defer the rest of medical management to the primary team. The plan is discussed with the patient's nurse. Elbert Calloway MD Neuro-Hospitalist Time with Patient: Less than 30
[2020-11-22] MEDS ORDERED: IMMUNE GLOBULIN (GAMMAGARD) 20 GM in EMPTY BAG 1 BAG IV ONE (16:00)
--- NOTE | 2020-11-22 16:28 | PN ---
PROGRESS NOTE DATE OF SERVICE: 11/22/2020 This 50-year-old gentleman who was admitted with acute weakness is being evaluated and treated for Guillan-Batche[place] syndrome and AIDD. No chest pain. No palpitations. No fever. PHYSICAL EXAMINATION: Alert and oriented x3. Pulse 85, blood pressure 149/70, respiration 20, temperature 98 degrees, pulse ox 98% on room air. HEENT: Conjunctivae normal. Oral mucosa moist. NECK: No jugular venous distention. No lymph node enlargement. CARDIOVASCULAR: S1, S2, muffled. No S3, no S4, RESPIRATORY: Diminished breath sounds at the bases. A few scattered rhonchi. ABDOMEN: Soft, nontender. NERVOUS SYSTEM: Weakness in the legs present, improving. LAB STUDIES: Glucose 205. ASSESSMENT: 1. 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 2. Right leg pain and deep vein thrombosis ruled out. 3. History of Guillain-Batchelor syndrome previously. 4. Previous history of COVID-19. 5. History of stroke on the right. 6. History of cerebrovascular accident, transient ischemic attack. 7. Gait dysfunction. 8. Diabetes type 2. 9. History of gastroesophageal reflux disease. 10.Hypertension. 11.Hyperlipidemia. 12.History of degenerative joint disease. 13.History of peripheral neuropathy secondary to diabetes type 2. 14.History of cocaine. 15.Obesity with body mass index of 31.8. RECOMMENDATIONS AND DISCUSSION: I recommend to continue current medications, continue symptomatic treatment. Otherwise, at this time I recommend continue with IVIG per Neurology. Monitor blood sugars closely. Guarded prognosis because of multiple complex medical issues. Resume the home medications. Further recommendations to follow. See orders for details. MMODL / IJN: [id number] /
[2020-11-22 17:22] LABS: Glucose,Whole Blood 157 mg/dL (75-99)
[2020-11-22] MEDS: glipiZIDE 5 MG TAB PO SCH (18:17)
[2020-11-22 20:22] LABS: Glucose,Whole Blood 236 mg/dL (75-99)
[2020-11-22] MEDS: ATORVASTATIN 40 MG TAB PO SCH (21:01)
[2020-11-23 05:06] VITALS: TEMP 97.9
[2020-11-23 07:06] LABS: Glucose,Whole Blood 168 mg/dL (75-99)
[2020-11-23] MEDS: GABAPENTIN 400 MG CAP PO SCH ×2 (07:59→15:22)
[2020-11-23] MEDS: AMITRIPTYLINE HCL 50 MG TAB PO SCH (08:00)
[2020-11-23] MEDS: INSULIN DETEMIR (LEVEMIR) 100 UNIT/ML SYR SQ SCH (08:00)
[2020-11-23] MEDS: PANTOPRAZOLE 40 MG TABLET PO SCH (08:00)
[2020-11-23] MEDS: INSULIN ASPART (NovoLOG) 100 UNIT/ML VIAL SQ SCH ×2 (08:00→11:36)
[2020-11-23] MEDS: PREGABALIN 100 MG CAP PO SCH (08:00)
[2020-11-23] MEDS: carvediloL 12.5 MG TAB PO SCH (08:00)
[2020-11-23] MEDS: HEPARIN SODIUM,PORCINE/PF 5,000 UNIT/0.5 ML SYRINGE SQ SCH (08:00)
[2020-11-23] MEDS: ASPIRIN 81 MG PO SCH (08:00)
[2020-11-23] MEDS: LOSARTAN 50 MG TAB PO SCH (08:00)
[2020-11-23] MEDS: glipiZIDE 10 MG TAB PO SCH (08:01)
[2020-11-23] MEDS: CYANOCOBALAMIN 1,000 MCG/ML 1 ML VIAL IM SCH (08:01)
[2020-11-23] MEDS ORDERED: LORATADINE 10 MG TAB PO SCH (09:00)
[2020-11-23] MEDS ORDERED: NON FORMULARY DRUG (Omeprazole [Omeprazole] 20 MG Capsule.Dr) PO SCH (09:00)
--- NOTE | 2020-11-23 11:20 | ECHOF ---
Referral Reason:Stroke MEASUREMENTS -------- HEIGHT: 198.1 cm WEIGHT: 124.7 kg BP: 136/78 RVIDd: 3.4 cm (< 3.3) IVSd: 1.2 cm (0.6 - 1.1) LVIDd: 5.2 cm (3.9 - 5.3) LVPWd: 1.2 cm (0.6 - 1.1) IVSs: 1.8 cm LVIDs: 4.1 cm LVPWs: 2.1 cm LA Diam: 3.9 cm (2.7 - 3.8) LAESV Index (A-L): 28.46 ml/m Ao Diam: 4.0 cm (2.0 - 3.7) AV Cusp: 2.5 cm (1.5 - 2.6) MV EXCURSION: 21.171 mm (> 18.000) MV EF SLOPE: 157 mm/s (70 - 150) EPSS: 1.6 cm MV E Raciel: 0.85 m/s MV DecT: 201 ms MV A Raciel: 1.04 m/s MV E/A Ratio: 0.82 FINDINGS -------- Sinus rhythm. This was a technically good study. The left ventricular size is normal. There is borderline concentric left ventricular hypertrophy. Overall left ventricular systolic function is mildly impaired with, an EF between 45 - 50 %. The right ventricle is mildly enlarged. Normal LA size by volume 22+/-6 ml/m2. The right atrium is normal in size. Interatrial and interventricular septum intact. The aortic valve is trileaflet and appears structurally normal. Trace amount of aortic regurgitatio n. There is trace to mild mitral regurgitation. The tricuspid valve appears structurally normal. There is no pulmonic regurgitation present. The aortic root is dilated measuring 4.0cm. IVC Not well visulized. There is no pericardial effusion. CONCLUSIONS -------- 1. The left ventricular size is normal. 2. There is borderline concentric left ventricular hypertrophy. 3. Overall left ventricular systolic function is mildly impaired with, an EF between 45 - 50 %. 4. The right ventricle is mildly enlarged. 5. The aortic valve is trileaflet and appears structurally normal. 6. Trace amount of aortic regurgitation. 7. There is trace to mild mitral regurgitation. 8. The aortic root is dilated measuring 4.0cm. 9. There is no pericardial effusion. DATABASE TESTER: Aubree Torrez RDCS
[2020-11-23 11:22] LABS: Glucose,Whole Blood 157 mg/dL (75-99)
[2020-11-23 11:48] VITALS: BMI 31.8
[2020-11-23 12:01] VITALS: BP 135/85; PULSE 85; RESP 19
--- NOTE | 2020-11-23 14:43 | P.PN ---
Subjective Progress Note Date: 11/23/20 The patient seen at bedside and he stated he is doing drastically better today compared to his initial presentation. Today is the last day of IVIG Objective - Vital Signs Vital signs: Vital Signs Temp 97.9 F 11/23/20 12:00 Pulse 85 11/23/20 12:00 Resp 19 11/23/20 12:00 BP 135/85 11/23/20 12:00 Pulse Ox 99 11/23/20 12:00 Intake & Output 11/22/20 11/23/20 11/23/20 18:59 06:59 18:59 Intake Total 177.625 400 26.25 Output Total 1000 Balance 177.625 -600 26.25 Weight 124.738 kg Intake: Intake, IV Titration 177.625 400 26.25 Amount Immune Globulin ( 177.625 Gammagard) 20 gm In Empty Bag 1 bag @ Titrate IV . Q0M ONE Rx#:[id number] Immune Globulin ( 200 26.25 Gammagard) 20 gm In Empty Bag 1 bag @ Titrate IV . Q0M ONE Rx#:[id number] Immune Globulin ( 200 Gammagard) 20 gm In Empty Bag 1 bag @ Titrate IV . Q0M ONE Rx#:[id number] Output: Urine 1000 Other: Voiding Method Toilet Toilet Urinal Urinal # Voids 2 2 - Exam GENERAL: The patient is lying in bed and is not in acute distress. NEUROLOGICAL: Higher mental function: The patient is awake, alert, oriented to self, place and time. Patient is following commands. No aphasia and no neglect. Cranial nerves: The pupils are round, equal and reactive to light and acc ommodation. Visual pearce are full to confrontation throughout. Extraocular movement is intact no nystagmus is noted. Facial sensation is normal to touch throughout. The facial strength is normal throughout. Hearing is normal bilaterally to hand rub. Tongue is midline and moved [id number] without any difficulty. No dysarthria is noted. Shoulder shrug is normal bilaterally. Motor: Gait is walking using a walker without any assistance, he is slow but seems steady. The strength is right lower extremity is 4+ to to slight 5-/5 able to lift above gravity. Otherwise 5 over 5 throughout. Normal tone and bulk. Cerebellum: Normal finger to nose bilaterally. Sensation: Sensation is decreased to touch from knees bilaterally (old). Otherwise normal to touch throughout. Reflexes (right/left): Left biceps is 1+, patellar 1+ bilaterally, ankles are 0 bilaterally. otherwise 2+ throughout upper. Plantars are downgoing bilaterally. - Labs CBC & Chem 7: 11/18/20 17:14 11/18/20 17:14 Labs: Abnormal Lab Results - Last 24 Hours (Table) 11/22/20 11/22/20 11/23/20 Range/Units 17:21 20:18 07:05 POC Glucose (mg/dL) 157 H 236 H 168 H (75-99) mg/dL 11/23/20 Range/Units 11:21 POC Glucose (mg/dL) 157 H (75-99) mg/dL Assessment and Plan Assessment: Acute right leg weakness. Possibly due to presumed AIDP (especially with multiple similar presentation in the past and was notified he had AIDP as cause at outside facility). 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 History of stroke about 10 years ago (but does not recall details and without re sidual weakness) Vitamin B12 deficiency (level of 267) Diabetes mellitus (HbA1c: 7.4)--uncontrolled history of HIV history of COVID-19 infection Peripheral polyneuropathy Hypertension Continous use of Cocaine use Anxiety/deprssion Plan: * CT of the head is reported as negative unenhanced head CT scan. * MRI of the brain is reported as no MRI evidence for recent infarct. Possible bilateral mastoiditis, correlate clinically. * Patient could not get MRI of the lumbar since could not fit in it. Therefore CT lumbar spine was obtained as a result and it is reported as degenerative changes greatest L4-L5 level. And is seems more moderate over the L4-L5 the report. Outside records from [facility]: Patient was last admitted to [facility] for on and discharged on 10/29/2020 in which he was admitted for frequent falls and altered mental status. His discharge diagnoses is decreased loss of consciousness secondary due to possible cocaine use versus narcolepsy/paroxysmal hypnopompic morning paralysis--improved Cocaine abuse Nontraumatic rhabdomyolysis It is mentioned the patient has an HIV. His diabetes mellitus is uncontrolled with a hemoglobin A1c of 8.7 on 08/29/2020 He had a history of COVID-19 infection He has a peripheral polyneuropathy. He has a history of presumed AIDP in February 2020 status post IVIG. He had MRI of the thoracic spine 10/16/2020 which is reportedly reported as essentially unremarkable MRI thoracic spine without contrast. MRI lumbar 10/16/2020 it is reported as no acute fracture or malalignment. Mild spondylolysis at the lower lumbar levels. No significant central canal stenosis at. Mild bilateral neuroforaminal narrowing at L4-L5. Fluid within the L4-L5 facet bilaterally may suggest an element of flaccidity MR the head on 10/16/2020 is reported as no acute intracranial processes identified. No evidence of recent hemorrhage or infarct. No gross space- occupying lesion is appreciated. Minimal burden of scattered flare hyperintense lesion within the bihemispheric white matter is nonspecific but likely reflects chronic microvascular ischemic change. Seems that the patient had extensive workup with LP, EMG and imaging concern for Guilliane [place] Syndrome but overlap his chronic peripheral neuropathy area and on repeat EMG of 08/30/2020 patient with peripheral polyneuropathy of demyelinating type with secondary axonal loss and study was improved from prior EMG in 2019. SPEP was negative. Lyme disease negative. Patient also had an EEG as well previously at that hospital in the past and it was negative. Neurology felt CIDP the less likely given presentation has been episodic read then progressive and preserved patellar reflexes. No involvement in the upper extremities. Patient had CT abdomen and pelvis with small right adrenal adenoma. Neurology recommended outpatient referral to sleep study Center at [facility] for his paralysis/narcolepsy. Work-up in our facility: * Carotid duplex is reported as no hemodynamically significant stenosis seen in either internal carotid artery. * Seryn Folate is 8.6 which is considered normal. TSH is 0.81 which is considered normal. * Hemoglobin A1c is 7.4 which is elevated * Rbc folate: 687 (normal). * Patient refused lumbar puncture as a result because of his previous diagnosis of GBS he was started on IVIG 2g/kg on 11/19/2020 for 5 days. Today is day 5/5. * Continue Aspirin 81mg daily (home dose) ad Lipitor 40mg daily at bedtime daily especially with history of stroke in past for secondary stroke prophylaxeis. * Consulted physical therapy and occupation therapy. * Ordered every 4 hours neuro checks and continuous cardiac monitoring. * Vitamin B12 is 267 which is low. Continue vitamin B12 1000 g daily by mouth. * We'll defer the rest of the medical management to primary team. * His HIV medications needs to be restarted and will defer and this was notified to his nurse. Will defer management to his primary team. * Patient was notified to follow-up with a neurologist as outpatient within 1-2 weeks upon discharge. He was notified to pursue with sleep study as notified in the past at [facility]. * The patient was counseled on cocaine use. * Will defer the rest of medical management to the primary team. After today's IVIG, he is clear from neurological perspective. The plan is discussed with the patient's nurse. Elbert Calloway MD Neuro-Hospitalist Time with Patient: Less than 30
[2020-11-23] MEDS ORDERED: IMMUNE GLOBULIN (GAMMAGARD) 20 GM in EMPTY BAG 1 BAG IV ONE (16:00)
[2020-11-23] MEDS ORDERED: TRIUMEQ 600-50-300 PO SCH (17:15)
--- NOTE | 2020-11-23 19:19 | CONS ---
CONSULTATION DATE OF SERVICE: 11/23/2020. REASON FOR CONSULTATION: HIV manage, medication and treatment. HISTORY OF PRESENT ILLNESS: The patient is a 50-year-old male with past medical history significant for HIV diagnosed about 3 years ago. The patient used to follow up with an ID physician in [place]. The patient is currently on Triumeq, mentioned that his last viral load was not detected and CD4 count has been in thousands. The patient apparently did have a COVID-19 in January of last year and subsequently did have an episode of Guillain [place] syndrome that was treated with IgG and did have overall improvement. Similar symptoms in June that responded to the IV Ig infusion. The patient is currently at [facility] undergoing rehabilitation for drugs. He presented to [facility] about 5 days ago for evaluation of right leg weakness that has been progressively getting worse and unable to use his right leg. The patient denies having any worsening back pain and denies ethanol problem. Patient did not have any fever on presentation to the hospital. The patient was afebrile and no fever has been recorded. Subsequently the patient did have a normal white count on admission. CBC has not been repeated since then. Sedimentation rate was 18. D. dimer was normal. Creatinine on admission was normal. Liver enzymes are normal. The patient has been evaluated by admitting team as well as neurology services and this patient has been treated with IVIG. The patient did have an MRI of the brain that was negative for any resistant infarct. Lumbar spine CT did show some degenerative changes but no other abnormality. The patient has not received his HIV medication over the last 5 days. Infectious Disease was consulted to confirm his HIV medication and reorder them. The patient is currently feeling much better. The right leg weakness has much improved. REVIEW OF SYSTEMS: Positive points have been mentioned in HPI. Rest of the systems are negative. PAST MEDICAL HISTORY: Diabetes mellitus, hypertension, Guillain [place] syndrome, HIV. PAST SURGICAL HISTORY: Tonsillectomy. SOCIAL HISTORY: Denies smoking. Does admit to alcoholism and drug use. FAMILY HISTORY: No pertinent findings noticed. ALLERGIES: ALLERGIES TO AMOXICILLIN, IBUPROFEN, LISINOPRIL AND TRAMADOL. MEDICATIONS: The patient is on Kelly, Elavil, aspirin, Lipitor, Coreg, vitamin B12, Neurontin, Glucotrol, NovoLog, Levemir, Imodium, Claritin, Ativan, Cozaar, Protonix, Lyrica, Restoril. PHYSICAL EXAMINATION: Blood pressure 135/85, pulse of 85. Temperature is 97.9. He is 99% on room air. General description: The patient is a middle-aged male up in the chair in no distress. No tachypnea or accessory muscles of respiration use. HEENT: Examination shows no pallor or scleral icterus. Oral mucous membrane is dry. NECK: Trachea central. No thyromegaly. LUNGS unlabored breathing. Clear to auscultation anteriorly. HEART S1, S2. Regular rate and rhythm. ABDOMEN: Soft, no tenderness. EXTREMITIES: No edema of the feet. SKIN: No rash or mass palpable. NEUROLOGICAL: Patient is awake, alert, oriented x3. Mood and affect normal. Right leg weakness seems to have resolved. LABS: Hemoglobin 11.8, white count 6.1. BUN of 9, creatinine 0.62. Those were done on admission five days ago and have not been repeated since then. MRI of the brain and CT of the lumbar spine as mentioned above. DIAGNOSTIC IMPRESSION AND PLAN: 1. Patient with history of HIV that had been diagnosed 3 years ago for which the patient is currently on Triumeq, mentioned the patient did have undetected viral load in the outpatient setting and CD4 count was in the thousands. The patient has been tolerating his medication. Unfortunately has not received any medication over the last 5 days as these were not ordered. Infectious Disease was consulted today. 2. Patient admitted to the hospital with right leg weakness concerning for possible metabolic syndrome and currently responded to the IVIG infusion. PLAN: We will restart his Triumeq 1 daily. This has been confirmed with pharmacy. Unfortunately, the medication not available. However, the patient may be able to use his medication if he brings from home. Thank you for this consultation. Will follow this patient along with you. MMODL / IJN: [id number] /
== END 2020-11-23 17:40 | disposition home or self-care (01) | DRG 95 ==
LOC: EC 15:20 → 5NMEDONC 20:52 → OBSVTOIN 11-21 15:29
PROVIDERS: ADMIT Internal Medicine; ATTEND Internal Medicine
PROC: 30233S1 Transfusion of Nonautologous Globulin into Peripheral Vein, Percutaneous Approach (ICD-10-PCS; principal; 2020-11-21)
DX: G61.0 Guillain-Barre syndrome (principal); F14.20 Cocaine dependence, uncomplicated; E11.42 Type 2 diabetes mellitus with diabetic polyneuropathy; E53.8 Deficiency of other specified B group vitamins; E66.9 Obesity, unspecified; Z68.31 Body mass index [BMI] 31.0-31.9, adult; E78.5 Hyperlipidemia, unspecified; F10.20 Alcohol dependence, uncomplicated; F41.9 Anxiety disorder, unspecified; I10 Essential (primary) hypertension; Z21 Asymptomatic human immunodeficiency virus [HIV] infection status; Z79.4 Long term (current) use of insulin; E11.65 Type 2 diabetes mellitus with hyperglycemia; Z79.82 Long term (current) use of aspirin; Z79.899 Other long term (current) drug therapy; Z80.1 Family history of malignant neoplasm of trachea, bronchus and lung; Z86.16 Personal history of COVID-19; Z86.73 Personal history of transient ischemic attack (TIA), and cerebral infarction without residual deficits; Z91.81 History of falling; R29.6 Repeated falls; M51.36 Other intervertebral disc degeneration, lumbar region; F32.9 Major depressive disorder, single episode, unspecified; Z90.89 Acquired absence of other organs; Z20.822 Contact with and (suspected) exposure to COVID-19; R26.9 Unspecified abnormalities of gait and mobility; Z88.6 Allergy status to analgesic agent; Z88.5 Allergy status to narcotic agent; Z88.0 Allergy status to penicillin; Z88.8 Allergy status to other drugs, medicaments and biological substances; Z71.51 Drug abuse counseling and surveillance of drug abuser
CPT/HCPCS: 36415; 70450; 70553; 71046; 72131; 80053; 80306; 81003; 82607; 82728; 82746; 82747; 83036; 83615; 83735; 84443; 84484; 85025; 85379; 85610; 85652; 86140; 87635; 93005; 93306; 93880; 93970; 96360; 96361; 99285